=== PATIENT | female | born 1990 | race Caucasian/White ===

== ENCOUNTER 2021-03-10 06:58 | Emergency (ER) | payer MEDICAID, SELFPAY ==
[2021-03-10 07:21] VITALS: BP 142/107; PULSE 86; RESP 16; TEMP 36.8; O2SAT 99; BMI 28.0
[2021-03-10 07:25] VITALS: BP 142/107; PULSE 90; O2SAT 99
--- NOTE | 2021-03-10 07:25 | ED_ITS ---
HPI - Allergic Reaction General: Chief complaint: Allergic Reaction Stated complaint: ITCHY/SPREADING RASH Time Seen by Provider: 03/10/21 07:00 History of Present Illness: Associated symptoms: Deny abdominal pain, dizziness, facial swelling, hoarseness, nausea, tongue swelling or vomiting Review of Systems Const: Denies: fever(s), chills, body aches, fatigue, malaise or diaphoresis Eyes: Denies: change in vision, blurry vision, photophobia, eye discomfort, eye discharge, eye redness or yellow eyes ENMT: Denies: throat pain, odynophagia, hoarseness, swelling of lips/tongue, ear or mastoid pain, ear discharge, change in hearing or nasal discharge Card: Denies: chest pain, palpitations, irregular heart rhythm, edema, lightheadedness, syncope, pre-syncope, dyspnea on exertion or orthopnea Resp: Denies: dyspnea, productive cough, non-productive cough, wheezing, hemoptysis or chest congestion GI: Denies: abdominal pain, nausea, vomiting, hematemesis, coffee ground emesis, heartburn, diarrhea, constipation, GI cramping, hematochezia or melena : Denies: flank pain, dysuria, urinary frequency, urinary urgency or hematuria Musc: Denies: neck pain, back pain, extremity pain, extremity swelling, joint pain, joint swelling, joint redness, joint warmth or joint stiffness Skin/Breast: Reports: rash and pruritus; Denies: erythema, skin pain or skin tenderness Neuro: Denies: headache(s), numbness in extremities, weakness in extremities, sensory changes, lack of coordination, difficulty walking, dizziness, vertigo, confusion, Slurred speech present or seizure-like activity Harish/Lymph: Denies: easy bruising, easy bleeding, petechiae, purpura or enlarged lymph nodes All/Imm: Denies: urticaria, throat swelling, tongue swelling, facial swelling or acute wheezing PFS ED PFSH: Medical History (Updated 03/10/21 @ 07:27 by Skye Chris) No pertinent past medical history Female Reproductive History: Date of last menstrual period: 02/17/21 Physical Exam Const: COMMON NORMALS: no acute distress, patient oriented x3, no limitations and alert GENERAL APPEARANCE: cooperative HENMT: COMMON NORMALS: normocephalic, atraumatic, external ears normal, EAC's normal and Normal external nose present HEAD & SCALP: normal to inspection, normocephalic and atraumatic FACE & SINUS: normal facial exam and face symmetric NOSE: Normal external nose present and Normal nares present EXTERNAL EAR: Yes external ears normal EXTERNAL AUDITORY CANAL: EAC's normal MOUTH: Normal oral and palatal mucosa present, lip normal and tongue normal Eye: COMMON NORMALS: Equal, round and reactive pupils present and conjunctivae normal GENERAL EYE: appearance normal, both eyes and all related structures ALIGNMENT: Yes alignment normal PERIORBITAL: periorbital findings normal EYELID: eyelids normal CONJUNCTIVA: Yes conjunctivae normal SCLERA: sclerae normal PUPIL: Yes Equal, round and reactive pupils present Neck/C-Spine: COMMON NORMALS: full ROM, no lymphadenopathy, supple, no meningeal signs and no JVD GENERAL: Yes normal visual inspection and Yes trachea midline Chest: COMMONS NORMALS: normal inspection of the chest and normal palpation of entire chest wall Resp: COMMON NORMALS: normal respiratory effort, No retractions, No use of accessory muscles and clear to auscultation bilaterally EFFORT & INSPECTION: Yes able to speak in complete sentences and Yes symmetric chest movement AUSCULTATION: clear to auscultation bilaterally, no crackles, no rales, no rhonchi and no wheezes Cardio: COMMON NORMALS: no JVD, regular rate, regular rhythm, S1 normal heart sound present and S2 normal heart sound present RATE: regular rate RHYTHM: regular rhythm HEART SOUNDS: S1 normal heart sound present, S2 normal heart sound present, no click, no gallops, no murmurs and no rubs GI: COMMON NORMALS: Soft to palpation and No hepatosplenomegaly present PALPATION: Yes Soft to palpation, No Tenderness to palpation present (GI), No Guarding due to palpation present (GI), No Rigid due to palpation, Yes No hepatosplenomegaly present, No Hernia present, No Palpable mass present and No Pulsatile mass present : COMMON NORMALS: Yes no CVA tenderness BLADDER/KIDNEY EXAM: Yes no CVA tenderness EXTERNAL FEMALE EXAM: No Hernia present Back/Pelvis: COMMON NORMALS: no CVA tenderness, thoracic and lumbar spine norm al to inspection, no thoracic nor lumbar tenderness and thoraco-lumbar ROM normal Extremity: COMMON NORMALS: normal to inspection, full ROM, capillary refill normal, no joint enlargement, no clubbing, cyanosis or edema and no calf tenderness Neuro: COMMON NORMALS: patient oriented x3, CN's II-XII intact bilaterally, moves all extremities, no focal motor deficits and no sensory deficits noted SENSORIUM/ORIENTATION: Yes alert MENINGEAL SIGNS: Yes no meningeal signs SPEECH: speech normal Psych: COMMON NORMALS: mental status grossly normal, Normal thought process present, cooperative, normal affect, speech normal and activity/motor behavior normal SPEECH: Yes normal speech THOUGHT PROCESS: Normal thought process present Skin: COMMON NORMALS: turgor normal, no jaundice, no petechiae and no mottling NARRATIVE SKIN EXAM: Spotty/diffuse contact dermatitis noted to face, hands and neck. GENERAL SKIN EXAM: turgor normal Course Vital Signs: Vital signs: Vital Signs Temperature 98.3 F 03/10/21 07:21 Pulse Rate 90 03/10/21 07:25 Respiratory Rate 16 03/10/21 07:21 Blood Pressure 142/107 03/10/21 07:25 Pulse Oximetry 99 03/10/21 07:25 MDM - Allergic Reaction MDM Narrative: Medical decision making narrative: Patient has no sign of s ystemic signs or symptoms such as anaphylaxis. She states she usually has to have a shot to get herself started. I will give her a shot of Decadron and send her home with prednisone. Discharge Plan Discharge Patient Disposition: Home Clinical Impression: Contact dermatitis Condition: Stable Prescriptions: New prednisone 10 mg tablet 20 mg PO TID 5 Days Qty: 30 RF: 0 Discharge Orders: Discharge ED (Routine); Ordered 03/10/21 Ordered By: Skye Chris Referrals: Stephani Magaña MD [Physician] - (Follow-up in 1 to 3 days for recheck) Discharge Diet: Usual diet Discharge Activity: Resume usual activity Patient Instructions: Contact Dermatitis (ED) Activity Restrictions/Additional Instructions: Return to the ER for worsening of your symptoms or for any other cause for concern. Coding Level of Care Code ED Web Development Consultant for Maile Fwd Exam Comprehensive
[2021-03-10] MEDS: dexamethasone 10 mg/mL INJ IM (07:41)
== END 2021-03-10 07:48 | disposition home or self-care (01) ==
PROVIDERS: Emergency Provider Emergency Medicine
DX: L25.9 Unspecified contact dermatitis, unspecified cause (principal)
CPT/HCPCS: 96372; 99283; J1100

== ENCOUNTER 2021-12-23 18:54 | Inpatient (IN) | payer BC, MEDICAID, SELFPAY ==
[2021-12-23] VITALS (17 sets, daily range): BP systolic 103–147; BP diastolic 52–99; PULSE 85–123; TEMP 36.6; BMI 41.1
[2021-12-23 19:24] LABS: Basophils % 0.2 %; Eosinophils # 0.1 10^3/uL (0.0-0.8); Eosinophils % 1.1 %; Hematocrit 33.9 % (37.0-47.0); Hemoglobin 11.6 g/dL (11.5-15.3); Lymphocytes # 3.5 10^3/uL (0.8-4.8); Lymphocytes % 33.3 %; Mean Corpuscular HGB Conc 34.2 g/dL (30.0-36.0); Mean Corpuscular Hemoglobin 28.9 pg (28.0-34.0); Mean Corpuscular Volume 84.5 fl (81-99); Mean Platelet Volume 11.6 fL (7.4-10.4); Monocytes # 0.8 10^3/uL (0.2-0.9); Monocytes % 7.1 %; Neutrophils # 5.98 10^3/uL (1.8-7.7); Neutrophils % 56.3 %; Nucleated Red Blood Cells % 0 %; Platelet Count 294 10^3/cmm (130-400); Red Blood Count 4.01 10^6/uL (4.1-5.3); Red Cell Distribution Width 14.3 % (12.1-15.1); White Blood Count 10.6 10^3/uL (4.0-10.0)
[2021-12-23] MEDS: dextrose 5%-lactated ringers 1,000 ML 125 ML IV (19:45)
[2021-12-23] MEDS: ampicillin 2,000 MG in sodium chloride 0.9% (plus) 50 ML 100 MG IV (19:50)
[2021-12-23 20:16] LABS: Alanine Aminotransferase 11 U/L (0-33); Albumin Level 3.8 g/dL (3.5-5.2); Alkaline Phosphatase 219 U/L (35-105); Anion Gap 17.8 (5-19); Aspartate Amino Transferase 17 U/L (0-32); Blood Urea Nitrogen 5 mg/dL (6-20); Calcium 9.2 mg/dL (8.5-10.5); Carbon Dioxide 18 mmol/L (22-29); Chloride 109 mmol/L (98-107); Globulin 2.9 g/dL (1.3-4.6); Glomerular Filtration Rate 183.8 mL/min (90-130); Glucose 103 mg/dL (65-115); Osmolality Calculated 288 mOsm/kg (285-295); Potassium 4.8 mmol/L (3.5-5.1); Sodium 140 mmol/L (136-145); Total Bilirubin 0.2 mg/dL (0.15-1.2); Total Protein 6.7 g/dL (6.6-8.7); Uric Acid 6.5 mg/dL (2.4-5.7)
[2021-12-23 20:18] LABS: Urine Appearance Cloudy (CLEAR); Urine Color Yellow (Yellow); pH Urine 6 (5-7)
[2021-12-23 20:19] LABS: Add Urine Microscopic? YES; Bilirubin Urine 1+ (Negative); Blood Urine 3+ (Negative); Glucose Urine UA Norm (Normal); Ketones Urine 1+ (Negative); Leukocyte Esterase Urine 1+ (Negative); Nitrate Urine Negative (Negative); Protein Urine 2+ (Negative); Urobilinogen Urine 4 mg/dL (Negative)
[2021-12-23 20:22] LABS: Bacteria Urine 3+ /hpf; RBC Urine 40-50 /hpf (0-2); Squamous Epithelial Cell Urine 15-25 /hpf (0-5)
[2021-12-23 20:23] LABS: Add Urine Culture? No
[2021-12-23 20:32] LABS: Urine Creatinine 425 mg/dL (28-217)
[2021-12-23 20:33] LABS: UPRO/UCREAT Ratio 0.47 mg/mg CR; Urine Protein Random 200 mg/dL
[2021-12-23] MEDS: miSOPROStol 100 mcg tablet 25 MCG VAGINAL (21:33)
[2021-12-23] MEDS: promethazine 25 mg/mL SDV 1 mL IM (22:34)
[2021-12-23] MEDS: morphine 4 mg/mL SDV 1 mL 8 MG IM (22:36)
[2021-12-24] VITALS (96 sets, daily range): BP systolic 103–218; BP diastolic 51–107; PULSE 70–122; RESP 14–20; TEMP 35.8–37; O2SAT 93–100
[2021-12-24] MEDS: ampicillin 1,000 MG in sodium chloride 0.9% (plus) 50 ML 100 MG IV ×4 (00:41→14:58)
[2021-12-24] MEDS: miSOPROStol 100 mcg tablet 25 MCG VAGINAL (02:08)
[2021-12-24] MEDS: dextrose 5%-lactated ringers 1,000 ML 125 ML IV ×2 (02:11→09:03)
[2021-12-24] MEDS: fentaNYL 50 mcg/mL INJ 2mL IVP ×2 (05:05→07:20)
--- NOTE | 2021-12-24 07:00 | PM.OPHPUD ---
Labor & Delivery H&P Update Date of Procedure: December 24, 2021 Date H&P Performed: 12/23/21 Admission Diagnosis: 31-year-old 3 para 2-0-0-2 at 39 weeks and 4 days who presented to the hospital for induction due to elevated blood pressures. Primary indication for procedure: 1. Elevated blood pressures and subsequent testing of a protein creatinine ratio greater than 0.4 and a uric acid of 6.5 indicating preeclampsia 2. Gestational age greater than 37 weeks Other information: The patient is a healthy 31-year-old female who presented to my office yesterday for routine office visit. During her visit she was noted to have an elevated blood pressure of 142/80. We rechecked her blood pressure 2 more times and both times they were elevated. Due to her gestational age, we elected to proceed with an induction. After arriving at the hospital, she had several elevated blood pressures as well. She has had no other signs or symptoms of preeclampsia otherwise. Her preeclamptic panel was otherwise within normal limits with exception of an elevated uric acid. Her panel was as follows her blood type is O+ her antibody screen is negative initial glucose screen was 167 but she passed her 3-hour her GBS status is positive she is rubella immune the remainder of her infectious disease profile was within normal limits. Related Problem List Diagnoses (1) 39 weeks gestation of : (2) Preeclampsia: The patient will be induced with Cytotec due to her unfavorable cervix. Her blood pressures have improved. The patient will not be placed on magnesium unless she has severe features. (3) Group B streptococcal carriage complicating : The patient will be placed on group B strep protocol A&P Assessment and plan (1) 39 weeks gestation of : Status: Acute (2) Preeclampsia: Status: Acute (3) Group B streptococcal carriage complicating : Status: Acute
[2021-12-24] MEDS: alum-mag-hydroxide-sime 30 mL UDC PO (07:28)
[2021-12-24] MEDS: lactated ringers 1,000 ML 999 ML IV (07:56)
--- NOTE | 2021-12-24 08:01 | ANES.PREANE2 ---
Pre-Anesthetic Assessment Height/Weight: Height 1.57 m Weight 102.058 kg Temp Pulse Resp BP O2 Del Method 96.4 F L 80 20 H 141/74 12/24/21 07:14 12/24/21 07:44 12/24/21 07:20 12/24/21 07:44 12/23/21 19:50 Preop Diagnosis: Labor analgesia Labor epidural Familial anesthetic complications: None Was Beta Wally taken within 24 hours: N/A Was Clonidine taken within 24 hours: N/A Last intake: Full stomach Social No alcohol and No tobacco Exam alert, oriented x 3, clear to auscultation bilaterally and regular rate & rhythm Airway Submandibular: within normal limits Cervical ROM: within normal limits Mallampati: Class II Dentition: full History/ROS No significant history except as noted and No significant complaints Pulmonary None reported CV/HEM Preeclampsia None reported Hepatic None reported GI None reported Metabolic None reported Musc/skel None reported Neuropsych None reported Anesthetic Plan ASA status: 2 Anesthesia: Anesthesia Evaluation, Eval. for regional block, General and Regional (specify below) (Labor epidural) Other: I discussed with patient the risk and benefits of labor epidural including PDPH, hypotension, back pain/discomfort/bruising, catastrophic nerve injury including paralysis, abscess, hematoma, failed block, one sided block, and LAST. Patient consents to labor epidural and in case of emergency consents to general anesthesia. Risk of > 500 ml blood loss (7ml/kg in children): No Medications/Allergies Allergies Allergy/AdvReac Type Severity Reaction Status Date / Time codeine Allergy ADR-Chest Verified 12/23/21 19:23 Pain gabapentin Allergy ADR-Seizure Verified 12/23/21 19:23 Current Medications Generic Name Dose Route Start Last Admin Trade Name Freq PRN Reason Stop Dose Admin Al Hydrox/Mg Hydrox/Simethicone 30 ml 12/23/21 19:16 12/24/21 07:28 Jhdf-Qil-Xrcgyoklt-Ariana 30 Ml Udc PO 30 ml Q4H PRN Administration INDIGESTION Fentanyl 25 - 100 mcg 12/23/21 19:16 12/24/21 07:20 Fentanyl 50 Mcg/Ml Inj 2ml IVP 50 mcg Q1H PRN Administration SEVERE PAIN Dextrose/Lactated Ringer's 1,000 mls @ 125 mls/hr 12/23/21 19:30 12/24/21 07:56 Dextrose 5%-Lactated Ringers IV Infused .Q8H PAULINA Infusion Ampicillin Sodium 1,000 mg/ 50 mls @ 100 mls/hr 12/23/21 23:30 12/24/21 05:28 Sodium Chloride IV Infused Q4H PAULINA Infusion Protocol Lactated Ringer's 1,000 mls @ 999 mls/hr 12/24/21 07:23 12/24/21 07:56 Lactated Ringers IV 999 mls/hr .Q1H1M PRN Administration See label comments PFSH Anesthesia Medical History No pertinent past medical history Female Reproductive History Date of last menstrual period: 03/22/21 : 3 Data Anesthesia : 12/23/21 19:00 12/23/21 19:00 Short CBC 12/23/21 Range/Units 19:00 WBC 10.6 H (4.0-10.0) 10^3/uL Hgb 11.6 (11.5-15.3) g/dL Hct 33.9 L (37.0-47.0) % MCV 84.5 (81-99) fl Plt Count 294 (130-400) 10^3/cmm Neut % (Auto) 56.3 % Neut # (Auto) 5.98 (1.8-7.7) 10^3/uL BMP 12/23/21 19:00 Sodium 140 Potassium 4.8 Chloride 109 H Carbon Dioxide 18 L BUN 5 L Creatinine 0.4 L Glucose 103 Calcium 9.2 Liver Function 12/23/21 Range/Units 19:00 Total Bilirubin 0.2 (0.15-1.2) mg/dL AST 17 (0-32) U/L ALT 11 (0-33) U/L Alkaline Phosphatase 219 H (35-105) U/L Albumin 3.8 (3.5-5.2) g/dL Urine 12/23/21 Range/Units 19:55 Urine Color Yellow (Yellow) Urine Appearance Cloudy (CLEAR) Urine pH 6 (5-7) Ur Specific [place] 1.020 (1.005-1.030) Urine Protein 2+ H (Negative) Urine Glucose (UA) Norm (Normal) Urine Ketones 1+ H (Negative) Urine Nitrate Negative (Negative) Urine Bilirubin 1+ H (Negative) Ur Leukocyte Esterase 1+ H (Negative) Urine RBC 40-50 H (0-2) /hpf Urine WBC 5-10 H (0-5) /hpf Cardiac Studies: No Data to Display
[2021-12-24] MEDS: oxytocin 30 UNIT/500 ML BAG IV (10:28)
[2021-12-24] MEDS: ondansetron 2 mg/ML SDV 2 mL 4 MG IVP (15:20)
--- NOTE | 2021-12-24 15:57 | ANES.PROC ---
Anesthesia Procedures Procedure/Date: 12/24/21 Epidural: Time Out Performed: Yes Consents Signed: Procedure Consent Consent: from patient Lumbar Level: L4-L5 Epidural position: sitting Epidural procedure: sterile prep of area, 1% lidocaine to numb the area, 18 g needle, neg for paresthesia, test dose given, 1.5% xylocaine 1:200k epi, 0.2% Ropivacaine bolus ml, placed PCEA, no systemic response, sterile dressing applied and 0.2% Ropiavacaine @ mls/hr (13) Additional Comments: Cap, mask donned by staff in room. Patient sat up. Patient prepped and draped in usual sterile fashion with Chlorprep. 1% lidocaine skin wheel. Tuohy inserted with stylet. Ligament engaged. Using ANNA w/ saline technique epidural space found, catheter threaded. Negative aspiration. Test dose 1.5% lidocaine with epinephrine 1:200,000 total 3 cc. No response. Sterile dressing. Infusion started. Loss at? 7? , catheter at 13. Tolerated well, 3 attempts (first two off midline to left) good block.?
--- NOTE | 2021-12-24 17:03 | PM.DELIVERY ---
Delivery Note: Date of delivery: December 24, 2021 Pre-delivery diagnoses: 31-year-old female at 39 weeks estimated gestational age with preeclampsia Post-delivery diagnoses: Same Procedure: Continuous vaginal delivery Delivering Physician: Dion Adan Estimated blood loss (mL): 100 Pre-Delivery Course: The patient presented to the hospital where she was diagnosed with preeclampsia. She was induced using Cytotec 25 mcg x 2. Her membranes ruptured during a vaginal check. Her labor was augmented with Pitocin. Her blood pressure normalized after induction. An epidural was placed. She progressed to complete . Delivery: DELIVERY: The patient progressed to complete without difficulty. She delivered a female with a weight of 7 pounds 14 ounces with Apgars of 8, 9. The baby was delivered from the REBECA position and placed on the mother's abdomen. The cord was then clamped and cut. There was no nuchal cord. There was no meconium. The placenta and 3 vessel cord were delivered intact shortly thereafter. The perineum and vaginal vault were carefully examined. A first-degree posterior midline superficial perineal tear was noted. It was repaired with 3-0 Vicryl in a running subcuticular stitch. There is also a minor anterior tear between the clitoris and the urethra. No repair was required. Both the mother and the baby were in stable condition. Post-Delivery Status: Good A&P Assessment and plan (1) Preeclampsia: Status: Acute (2) 39 weeks gestation of : Status: Acute (3) Group B streptococcal carriage complicating : Status: Acute (4) Spontaneous vaginal delivery: Status: Acute Coding Level of Care Code Acute [place] Feather Trimmer for g Fwd Diagnoses Preeclampsia O14.90 39 weeks gestation of Z3A.39 Group B streptococcal carriage complicating O99.820 Spontaneous vaginal delivery O80
[2021-12-24] MEDS: docusate sodium 100 mg Capsule PO (18:33)
[2021-12-24] MEDS: ibuprofen 800 mg tablet PO ×2 (18:33→21:22)
--- NOTE | 2021-12-24 18:45 | ANE.PACU2 ---
Inpatient post-anesthesia follow up: Airway intact: Yes Vital signs: Temperature 97.9 F Pulse Rate 103 Respiratory Rate 14 Blood Pressure 147/75 Pulse Oximetry 99 Oxygen Delivery Me thod Room Air Oxygen Flow Rate Fraction of Inspir ed Oxygen Hydration adequate: Yes Nausea and vomiting: No Pain level: 2 Mental status: Baseline
[2021-12-24] MEDS: HYDROcodone-acetaminophen 5-325 mg Tablet PO (20:03)
[2021-12-25 00:34] VITALS: BP 155/78; PULSE 98; TEMP 36.5
[2021-12-25] MEDS: HYDROcodone-acetaminophen 5-325 mg Tablet PO ×3 (02:39→20:11)
[2021-12-25 03:18] VITALS: BP 151/87; PULSE 91; RESP 15; TEMP 36.6; O2SAT 100
[2021-12-25 06:36] VITALS: BP 142/82; PULSE 91; TEMP 36.6; O2SAT 99
[2021-12-25 07:03] LABS: Hematocrit 29.1 % (37.0-47.0); Hemoglobin 9.8 g/dL (11.5-15.3); Mean Corpuscular HGB Conc 33.7 g/dL (30.0-36.0); Mean Corpuscular Hemoglobin 28.9 pg (28.0-34.0); Mean Corpuscular Volume 85.8 fl (81-99); Mean Platelet Volume 12.2 fL (7.4-10.4); Platelet Count 245 10^3/cmm (130-400); Red Blood Count 3.39 10^6/uL (4.1-5.3); Red Cell Distribution Width 14.5 % (12.1-15.1); White Blood Count 12.3 10^3/uL (4.0-10.0)
[2021-12-25] MEDS: docusate sodium 100 mg Capsule PO (08:49)
[2021-12-25] MEDS: ibuprofen 800 mg tablet PO ×2 (08:49→15:50)
[2021-12-25] MEDS: prenatal vitamin Capsule 1 CAP PO (08:49)
[2021-12-25 09:00] VITALS: BP 146/82; PULSE 89; RESP 16; TEMP 36.8; O2SAT 94
[2021-12-25 16:18] VITALS: BP 130/73; PULSE 65; RESP 17; TEMP 36.8; O2SAT 98
--- NOTE | 2021-12-25 18:09 | PM.OBGYDC ---
Discharge Providers AUDIO NARRATOR Date of Admission: 12/23/21 18:54 Date of Discharge: 12/25/21 Attending Provider at Admission: Dion Adan MD Attending Provider at Discharge: Dion Adan MD Diagnoses at Discharge Discharge Diagnosis (1) Preeclampsia: Status: Acute (2) 39 weeks gestation of : Status: Acute (3) Group B streptococcal carriage complicating : Status: Acute (4) Spontaneous vaginal delivery: Status: Acute Reason for Visit Reason for Visit: Induction Hospital Course Hospital Course The patient presented to the hospital for induction due to having an elevated blood pressure in the office. As a part of her preeclamptic work-up, she was also found to have a protein creatinine ratio that was mildly elevated. Placed on Cytotec 25 mcg x 2. Her amniotic sac ruptured. Pitocin was initiated. She progressed to complete and had an unremarkable delivery of a healthy infant. She occasionally had elevated blood pressures, but overall her blood pressures were within normal limits without intervention. She had no other signs or symptoms of preeclampsia. Her course was unremarkable. Her bleeding was within normal limits. She had some challenges with breast-feeding, but currently, her breast-feeding is going well. Information Peripartum Data: Delivery Method: Vaginal Physical Exam Narrative: The patient is alert and oriented Her lungs are clear to auscultation her heart has a regular rate and rhythm with no murmurs Her abdomen is nontender. Her fundus is below the umbilicus and is firm. She has trace to 1+ edema in her lower extremities bilaterally. Urinary Catheter Management: Calixto: Cath Placed During This Visit: yes, but has since been removed by the nurse Reason for Continuing Indwelling Catheter: Decision to DC Catheter Urinary Catheter Date of Insertion: 12/24/21 Urinary Catheter Time of Insertion: 08:45 Date Urinary Catheter Removed: 12/24/21 Time Urinary Catheter Discontinued: 16:20 Discharge Data Studies Completed and Pending Laboratory Results WBC 12.3 10^3/uL (4.0-10.0) H 12/25/21 04:39 RBC 3.39 10^6/uL (4.1-5.3) L 12/25/21 04:39 Hgb 9.8 g/dL (11.5-15.3) L 12/25/21 04:39 Hct 29.1 % (37.0-47.0) L 12/25/21 04:39 MCV 85.8 fl (81-99) 12/25/21 04:39 MCH 28.9 pg (28.0-34.0) 12/25/21 04:39 MCHC 33.7 g/dL (30.0-36.0) 12/25/21 04:39 RDW 14.5 % (12.1-15.1) 12/25/21 04:39 Plt Count 245 10^3/cmm (130-400) 12/25/21 04:39 MPV 12.2 fL (7.4-10.4) H 12/25/21 04:39 Neut % (Auto) 56.3 % 12/23/21 19:00 Lymph % (Auto) 33.3 % 12/23/21 19:00 [place] % (Auto) 7.1 % 12/23/21 19:00 Eos % (Auto) 1.1 % 12/23/21 19:00 Baso % (Auto) 0.2 % 12/23/21 19:00 Neut # (Auto) 5.98 10^3/uL (1.8-7.7) 12/23/21 19:00 Lymph # (Auto) 3.5 10^3/uL (0.8-4.8) 12/23/21 19:00 [place] # (Auto) 0.8 10^3/uL (0.2-0.9) 12/23/21 19:00 Eos # (Auto) 0.1 10^3/uL (0.0-0.8) 12/23/21 19:00 Baso # (Auto) 0.0 10^3/uL (0.0-0.1) 12/23/21 19:00 Nucleated RBC % (auto) 0 % 12/23/21 19:00 Nucleated RBCs # 0.0 /100WBC 12/23/21 19:00 Sodium 140 mmol/L (136-145) 12/23/21 19:00 Potassium 4.8 mmol/L (3.5-5.1) 12/23/21 19:00 Chloride 109 mmol/L (98-107) H 12/23/21 19:00 Carbon Dioxide 18 mmol/L (22-29) L 12/23/21 19:00 Anion Gap 17.8 (5-19) 12/23/21 19:00 BUN 5 mg/dL (6-20) L 12/23/21 19:00 Creatinine 0.4 mg/dL (0.5-0.9) L 12/23/21 19:00 GFR Calculation 183.8 mL/min (90-130) H 12/23/21 19:00 Glucose 103 mg/dL (65-115) 12/23/21 19:00 Calculated Osmolality 288 mOsm/kg (285-295) 12/23/21 19:00 Uric Acid 6.5 mg/dL (2.4-5.7) H 12/23/21 19:00 Calcium 9.2 mg/dL (8.5-10.5) 12/23/21 19:00 Total Bilirubin 0.2 mg/dL (0.15-1.2) 12/23/21 19:00 AST 17 U/L (0-32) 12/23/21 19:00 ALT 11 U/L (0-33) 12/23/21 19:00 Alkaline Phosphatase 219 U/L (35-105) H 12/23/21 19:00 Total Protein 6.7 g/dL (6.6-8.7) 12/23/21 19:00 Albumin 3.8 g/dL (3.5-5.2) 12/23/21 19:00 Globulin 2.9 g/dL (1.3-4.6) 12/23/21 19:00 Urine Color Yellow (Yellow) 12/23/21 19:55 Urine Appearance Cloudy (CLEAR) 12/23/21 19:55 Urine pH 6 (5-7) 12/23/21 19:55 Ur Specific [place] 1.020 (1.005-1.030) 12/23/21 19:55 Urine Protein 2+ (Negative) H 12/23/21 19:55 Urine Glucose (UA) Norm (Normal) 12/23/21 19:55 Urine Ketones 1+ (Negative) H 12/23/21 19:55 Urine Blood 3+ (Negative) H 12/23/21 19:55 Urine Nitrate Negative (Negative) 12/23/21 19: Urine Bilirubin 1+ (Negative) H 12/23/21 19:55 Urine Urobilinogen 4 mg/dL (Negative) H 12/23/21 19:55 Ur Leukocyte Esterase 1+ (Negative) H 12/23/21 19:55 Urine RBC 40-50 /hpf (0-2) H 12/23/21 19:55 Urine WBC 5-10 /hpf (0-5) H 12/23/21 19:55 Ur Squamous Epith Cells 15-25 /hpf (0-5) H 12/23/21 19:55 Calcium Oxalate Crystal 5-10 /hpf H 12/23/21 19:55 Amorphous Sediment Not Reportable 12/23/21 19:55 Urine Bacteria 3+ /hpf (NONE) H 12/23/21 19:55 U Random Total Protein 200 mg/dL 12/23/21 19:55 Urine Creatinine 425 mg/dL (28-217) H 12/23/21 19:55 Protein/Creatinin Ratio 0.47 mg/mg CR 12/23/21 19:55 Vitals Last Vital Signs Temp 98.2 F 12/25/21 16:18 Pulse 65 12/25/21 16:18 Resp 17 12/25/21 16:18 BP 130/73 12/25/21 16:18 Pulse Ox 98 12/25/21 16:18 O2 Del Method 12/25/21 16:18 Discharge Plan Discharge Patient Disposition: Home Condition: Stable Prescriptions: New ibuprofen 800 mg Tablet 800 mg PO TID Qty: 45 0RF -U 106.5-1 mg Capsule 1 cap PO DAILY Qty: 100 0RF Discharge Orders: Discharge Order (Routine); Ordered 12/25/21 Ordered By: Dion Adan Referrals: Dion Adan MD [Physician] - 02/05/22 2:30 pm (Also set up appointment at the same time as her child next week.) Discharge Diet: Usual diet Discharge Activity: Limit activity as instructed Patient Instructions: Opioid Safety Discharge Attestations AUDIO NARRATOR Time Spent in Discharge Care*: greater than 30 min Coding Level of Care Code Acute Java Front End Web Developer for Chg Fwd Diagnoses Preeclampsia O14.90 39 weeks gestation of Z3A.39 Group B streptococcal carriage complicating O99.820 Spontaneous vaginal delivery O80
[2021-12-25 20:50] VITALS: BP 149/90; PULSE 72; RESP 17; TEMP 36.8
== END 2021-12-25 20:59 | disposition home or self-care (01) | DRG 807 ==
LOC: OPOB 18:55 → OBGYN 18:55
PROVIDERS: Admitting Provider Family Medicine; Visit Provider Family Medicine
DX: O14.94 Unspecified pre-eclampsia, complicating childbirth (principal); Z37.0 Single live birth; Z3A.39 39 weeks gestation of pregnancy; O99.824 Streptococcus B carrier state complicating childbirth; O70.0 First degree perineal laceration during delivery; O99.334 Smoking (tobacco) complicating childbirth; F17.210 Nicotine dependence, cigarettes, uncomplicated; Z88.5 Allergy status to narcotic agent
CPT/HCPCS: 12345; 36415; 51702; 59409; 80053; 81001; 82570; 84156; 84550; 85025; 85027; 96372; J0290; J2270; J2405; J2550; J2795; J3010

== ENCOUNTER 2021-12-27 06:36 | Emergency (ER) | payer BC, MEDICAID, SELFPAY ==
[2021-12-27 06:56] VITALS: BP 159/86; PULSE 99; RESP 18; TEMP 36.8; O2SAT 100; BMI 36.6
--- NOTE | 2021-12-27 06:56 | W.ED.GENADLT ---
HPI - General Adult General: Chief complaint: Headache Stated complaint: headache Time Seen by Provider: 12/27/21 06:39 Source: patient Mode of arrival: ambulatory Limitations: no limitations History of Present Illness: 31-year-old female who recently gave 3 days ago she was preeclamptic had a spontaneous vaginal delivery she states that since being discharged home she has had a headache along with some swelling in her extremities states she has not checked her blood pressure she does not have a blood pressure cuff at home is hypertensive here. She denies any fever she states her headache is not postural does not improved by laying flat is currently a 6 out of 10 she had no seizure she denies any fever denies any abdominal pain. Associated symptoms: Reports headache(s); Deny chest pain, dyspnea, nausea, rash or vomiting Review of Systems Const: Denies: fever(s), chills, body aches or change in appetite Eyes: Denies: blurry vision or eye discomfort ENMT: Denies: throat pain or dental pain Card: Denies: chest pain Resp: Denies: dyspnea GI: Denies: abdominal pain, nausea, vomiting or diarrhea : Denies: dysuria Musc: Reports: extremity swelling Skin/Breast: Denies: rash Neuro: Reports: headache(s) Psych: Denies: depression Harish/Lymph: Denies: easy bruising All/Imm: Denies: urticaria PFSH ED PFSH: Medical History No pertinent past medical history Social History (Updated 12/27/21 @ 06:57 by Nafisa Driver MD) Substance/Drug Use: never Female Reproductive History: Date of last menstrual period: 03/22/21 Physical Exam Const: COMMON NORMALS: no acute distress, patient oriented x3 and healthy appearing HENMT: COMMON NORMALS: normocephalic and atraumatic HEAD & SCALP: normocephalic and atraumatic Eye: COMMON NORMALS: Equal, round and reactive pupils present and EOMs intact bilaterally PUPIL: Yes Equal, round and reactive pupils present Neck/C-Spine: COMMON NORMALS: full ROM and supple Chest: COMMONS NORMALS: normal inspection of the chest and normal palpation of entire chest wall Resp: COMMON NORMALS: normal respiratory effort, No retractions, No use of accessory muscles and clear to auscultation bilaterally AUSCULTATION: clear to auscultation bilaterally Cardio: COMMON NORMALS: regular rate, regular rhythm and No murmurs present (Cardio) RATE: regular rate RHYTHM: regular rhythm GI: COMMON NORMALS: Normal to inspection, nondistended, normoactive bowel sounds present, Soft to palpation, non-tender and no masses PALPATION: Yes Soft to palpation Extremity: NARRATIVE EXTREMITY EXAM: 1+ lower ext edema Neuro: COMMON NORMALS: patient oriented x3, moves all extremities and no focal motor deficits Psych: COMMON NORMALS: mental status grossly normal, Normal thought process present and cooperative THOUGHT PROCESS: Normal thought process present Skin: COMMON NORMALS: no rashes or lesions noted and no wounds GENERAL SKIN EXAM: no rashes or lesions noted Course Vital Signs: Vital signs: Vital Signs Temperature 98.2 F 12/27/21 06:56 Pulse Rate 89 12/27/21 08:36 Respiratory Rate 14 12/27/21 08:36 Blood Pressure 110/58 12/27/21 08:36 Pulse Oximetry 97 12/27/21 08:36 Oxygen Delivery Me thod 12/27/21 06:56 MDM - General Adult Medical Decision Making Patient presents here with headache along with some hypertension blood work here is normal no signs of preeclampsia here her blood pressure has improved I talked her OB will start her on HCTZ she is to follow-up with him she is return if worsening she understands agrees to plan. Lab Data : 12/27/21 07:25 12/27/21 07:25 Laboratory Results WBC 8.4 10^3/uL (4.0-10.0) 12/27/21 07:25 RBC 3.72 10^6/uL (4.1-5.3) L 12/27/21 07:25 Hgb 10.6 g/dL (11.5-15.3) L 12/27/21 07:25 Hct 31.9 % (37.0-47.0) L 12/27/21 07:25 MCV 85.8 fl (81-99) 12/27/21 07:25 MCH 28.5 pg (28.0-34.0) 12/27/21 07:25 MCHC 33.2 g/dL (30.0-36.0) 12/27/21 07:25 RDW 14.5 % (12.1-15.1) 12/27/21 07:25 Plt Count 297 10^3/cmm (130-400) 12/27/21 07:25 MPV 10.7 fL (7.4-10.4) H 12/27/21 07:25 Neut % (Auto) 56.5 % 12/27/21 07:25 Lymph % (Auto) 32.7 % 12/27/21 07:25 [place] % (Auto) 6.5 % 12/27/21 07:25 Eos % (Auto) 2.3 % 12/27/21 07:25 Baso % (Auto) 0.6 % 12/27/21 07:25 Neut # (Auto) 4.76 10^3/uL (1.8-7.7) 12/27/21 07:25 Lymph # (Auto) 2.8 10^3/uL (0.8-4.8) 12/27/21 07:25 [place] # (Auto) 0.6 10^3/uL (0.2-0.9) 12/27/21 07:25 Eos # (Auto) 0.2 10^3/uL (0.0-0.8) 12/27/21 07:25 Baso # (Auto) 0.1 10^3/uL (0.0-0.1) 12/27/21 07:25 Nucleated RBC % (auto) 0 % 12/27/21 07:25 Nucleated RBCs # 0.0 /100WBC 12/27/21 07:25 Sodium 138 mmol/L (136-145) 12/27/21 07:25 Potassium 4.0 mmol/L (3.5-5.1) 12/27/21 07:25 Chloride 103 mmol/L (98-107) 12/27/21 07:25 Carbon Dioxide 23 mmol/L (22-29) 12/27/21 07:25 Anion Gap 16.0 (5-19) 12/27/21 07:25 BUN 10 mg/dL (6-20) 12/27/21 07:25 Creatinine 0.4 mg/dL (0.5-0.9) L 12/27/21 07:25 GFR Calculation 183.8 mL/min (90-130) H 12/27/21 07:25 Glucose 87 mg/dL (65-115) 12/27/21 07:25 Calculated Osmolality 284 mOsm/kg (285-295) L 12/27/21 07:25 Calcium 9.3 mg/dL (8.5-10.5) 12/27/21 07:25 Total Bilirubin 0.2 mg/dL (0.15-1.2) 12/27/21 07:25 AST 21 U/L (0-32) 12/27/21 07:25 ALT 12 U/L (0-33) 12/27/21 07:25 Alkaline Phosphatase 143 U/L (35-105) H 12/27/21 07:25 Lactate Dehydrogenase 208 U/L (135-214) 12/27/21 07:25 Total Protein 6.1 g/dL (6.6-8.7) L 12/27/21 07:25 Albumin 3.2 g/dL (3.5-5.2) L 12/27/21 07:25 Globulin 2.9 g/dL (1.3-4.6) 12/27/21 07:25 Urine Color Yellow (Yellow) 12/27/21 07:50 Urine Appearance Clear (CLEAR) 12/27/21 07:50 Ur Specific [place] 1.007 (1.005-1.030) 12/27/21 07:50 Urine Protein Neg (Negative) 12/27/21 07:50 Urine Glucose (UA) Norm (Normal) 12/27/21 07:50 Urine Ketones Negative (Negative) 12/27/21 07:50 Urine Blood 3+ (Negative) H 12/27/21 07:50 Urine Nitrate Negative (Negative) 12/27/21 07:50 Urine Bilirubin Neg (Negative) 12/27/21 07:50 Urine Urobilinogen Norm mg/dL (Negative) 12/27/21 07:50 Ur Leukocyte Esterase 1+ (Negative) H 12/27/21 07:50 Urine RBC Too numerous to cnt /hpf (0-2) H 12/27/21 07:50 Urine WBC 0-4 /hpf (0-5) H 12/27/21 07:50 Ur Squamous Epith Cells 0-4 /hpf (0-5) H 12/27/21 07:50 Amorphous Sediment Not Reportable 12/27/21 07:50 Urine Bacteria None /hpf (NONE) 12/27/21 07:50 Discharge Plan Discharge Patient Disposition: Home Clinical Impression: Hypertension Headache Qualifiers: Headache type: unspecified Prescriptions: New hydrochlorothiazide 50 mg tablet 50 mg PO QAM Qty: 14 0RF No Action ibuprofen 800 mg Tablet 800 mg PO TID Qty: 45 0RF -U 106.5-1 mg Capsule 1 cap PO DAILY Qty: 100 0RF Discharge Orders: Discharge ED (Routine); Ordered 12/27/21 Ordered By: Nafisa Driver Referrals: Dion Adan MD [Primary Care Provider] - 1-3 days Discharge Diet: Advance as tolerated Discharge Activity: Resume usual activity Patient Instructions: Hypertension (ED) Coding Level of Care Code ED Professor Of Special Education for Chg Fwd Exam Comprehensive
[2021-12-27] MEDS: metoclopramide 5 mg/mL SDV 2 mL 10 MG IVP (07:31)
[2021-12-27] MEDS: diphenhydrAMINE 50 mg/mL SDV 1mL IVP (07:39)
[2021-12-27 07:51] LABS: Basophils # 0.1 10^3/uL (0.0-0.1); Basophils % 0.6 %; Eosinophils # 0.2 10^3/uL (0.0-0.8); Eosinophils % 2.3 %; Hematocrit 31.9 % (37.0-47.0); Hemoglobin 10.6 g/dL (11.5-15.3); Lymphocytes # 2.8 10^3/uL (0.8-4.8); Lymphocytes % 32.7 %; Mean Corpuscular HGB Conc 33.2 g/dL (30.0-36.0); Mean Corpuscular Hemoglobin 28.5 pg (28.0-34.0); Mean Corpuscular Volume 85.8 fl (81-99); Mean Platelet Volume 10.7 fL (7.4-10.4); Monocytes # 0.6 10^3/uL (0.2-0.9); Monocytes % 6.5 %; Neutrophils # 4.76 10^3/uL (1.8-7.7); Neutrophils % 56.5 %; Nucleated Red Blood Cells % 0 %; Platelet Count 297 10^3/cmm (130-400); Red Blood Count 3.72 10^6/uL (4.1-5.3); Red Cell Distribution Width 14.5 % (12.1-15.1); White Blood Count 8.4 10^3/uL (4.0-10.0)
--- NOTE | 2021-12-27 08:00 | PC.NURSE ---
spoke with physician regarding labetolol order and pt current blood pressure. verbal order received to hold labetolol at this time.
[2021-12-27 08:02] VITALS: BP 132/66; PULSE 73; RESP 16; O2SAT 98
[2021-12-27 08:09] LABS: Alanine Aminotransferase 12 U/L (0-33); Albumin Level 3.2 g/dL (3.5-5.2); Alkaline Phosphatase 143 U/L (35-105); Aspartate Amino Transferase 21 U/L (0-32); Blood Urea Nitrogen 10 mg/dL (6-20); Calcium 9.3 mg/dL (8.5-10.5); Carbon Dioxide 23 mmol/L (22-29); Chloride 103 mmol/L (98-107); Globulin 2.9 g/dL (1.3-4.6); Glomerular Filtration Rate 183.8 mL/min (90-130); Glucose 87 mg/dL (65-115); Lactate Dehydrogenase 208 U/L (135-214); Osmolality Calculated 284 mOsm/kg (285-295); Sodium 138 mmol/L (136-145); Total Bilirubin 0.2 mg/dL (0.15-1.2); Total Protein 6.1 g/dL (6.6-8.7)
[2021-12-27 08:19] LABS: Bilirubin Urine Neg (Negative); Blood Urine 3+ (Negative); Glucose Urine UA Norm (Normal); Ketones Urine Negative (Negative); Leukocyte Esterase Urine 1+ (Negative); Nitrate Urine Negative (Negative); Protein Urine Neg (Negative); Urine Appearance Clear (CLEAR); Urine Color Yellow (Yellow); Urobilinogen Urine Norm (Negative)
[2021-12-27 08:20] LABS: Add Urine Microscopic? YES
[2021-12-27 08:25] LABS: Add Urine Culture? No; RBC Urine TOO NUMEROUS TO CNT /hpf (0-2); Squamous Epithelial Cell Urine 0-4 /hpf (0-5); WBC Urine 0-4 /hpf (0-5)
[2021-12-27 08:36] VITALS: BP 110/58; PULSE 89; RESP 14; O2SAT 97
--- NOTE | 2021-12-27 08:37 | PC.NURSE ---
pt laying in bed, asleep. Significant other at bedside.
[2021-12-27 09:14] VITALS: BP 131/77; PULSE 91; RESP 18; O2SAT 97
[2021-12-27 09:23] LABS: pH Urine 7 (5-7)
== END 2021-12-27 09:16 | disposition home or self-care (01) ==
PROVIDERS: Emergency Provider Emergency Medicine; PCP Family Medicine
DX: R51.9 Headache, unspecified (principal); I10 Essential (primary) hypertension
CPT/HCPCS: 80053; 81001; 83615; 85025; 96374; 96375; 99284; J1200; J2765

== ENCOUNTER → 2022-01-29 13:15 | Outpatient (BNVA) | payer BC, MEDICAID, SELFPAY | PROVIDERS: PCP Family Medicine; Visit Provider Registered Nurse Neonatal Intensive Care | DX: J02.0 Streptococcal pharyngitis (principal); H66.001 Acute suppurative otitis media without spontaneous rupture of ear drum, right ear | CPT/HCPCS: 87880 ==

== ENCOUNTER 2022-05-06 12:17 | Emergency (ER) | payer BC, MEDICAID, SELFPAY ==
[2022-05-06 12:22] VITALS: BP 181/122; PULSE 79; RESP 16; TEMP 36.7; O2SAT 99
--- NOTE | 2022-05-06 12:25 | ECG_ITS ---
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 Measurements Intervals [place] Rate: 83 P: 56 [place]: 158 QRS: 25 QRSD: 100 T: 48 QT: 348 QTc: 411 Interpretive Statements SINUS RHYTHM No previous ECG available for comparison Electronically Signed On 05-06-2022 14:51:32 LUBRICATION SERVICER by Kushal Boone M.D. [id number] f
--- NOTE | 2022-05-06 13:25 | XR_ITS ---
WS: [id number] Exam: XR chest 1V portable [id number] Date/Time of Exam: 05/06/2022 1:48 PM Reason For Exam: dyspnea/cough Comparison 03/21/2007. Findings: The lungs are clear and fully expanded. Costophrenic angles are sharp. No infiltrates. Bronchovascula r relief appears normal. Cardiac silhouette is unremarkable. Bony elements are intact. XR/XR chest 1V portable [id number] IMPRESSION: Unremarkable chest radiograph.
[2022-05-06 13:57] LABS: Basophils % 0.4 %; Eosinophils # 0.1 10^3/uL (0.0-0.8); Eosinophils % 1.6 %; Hematocrit 39.1 % (37.0-47.0); Hemoglobin 13.4 g/dL (11.5-15.3); Lymphocytes # 2.1 10^3/uL (0.8-4.8); Lymphocytes % 42.4 %; Mean Corpuscular HGB Conc 34.3 g/dL (30.0-36.0); Mean Corpuscular Hemoglobin 27.5 pg (28.0-34.0); Mean Corpuscular Volume 80.1 fl (81-99); Mean Platelet Volume 10.6 fL (7.4-10.4); Monocytes # 0.3 10^3/uL (0.2-0.9); Monocytes % 5.4 %; Nucleated Red Blood Cells % 0 %; Platelet Count 366 10^3/cmm (130-400); Red Blood Count 4.88 10^6/uL (4.1-5.3); Red Cell Distribution Width 13.4 % (12.1-15.1)
--- NOTE | 2022-05-06 14:01 | W.ED.CHESTPA ---
HPI - Chest Pain General: Chief Complaint: Chest Pain Stated Complaint: Chest pains Time Seen by Provider: 05/06/22 13:13 Source: patient Mode of arrival: ambulatory History of Present Illness: 32-year-old female presents emergency room complaining of palpitations and chest discomfort for the last 3 days intermittently. She feels like she has a hot sensation in her chest that is radiating up and to her chest and neck. No previous history of cardiac issues. Her blood pressure is significantly elevated when she first arrived. States she has had a history of panic attacks. She feels like she may be at the onset of a panic attack now. She denies any fevers sweats or chills last few days she has had some loose stools and nonproductive cough. PFS ED PFSH: Medical History No pertinent past medical history Female Reproductive History: Date of last menstrual period: 03/22/21 Course Vital Signs: Vital signs: Vital Signs Temperature 98.0 F 05/06/22 12:22 Pulse Rate 79 05/06/22 12:22 Respiratory Rate 16 05/06/22 12:22 Blood Pressure 181/122 05/06/22 12:22 Pulse Oximetry 99 05/06/22 12:22 Oxygen Delivery Me thod 05/06/22 12:22 MDM - Chest Pain Medical Decision Making Patient reports that taking a hot bath or palpation of the pain gets worse and anterior chest improves it. Her blood pressure is moderately elevated EKG was normal she is sats have been good and she has not been tachycardic we will discharge her home with pantoprazole 40 p.o. daily also going to have her take amlodipine 2.5 p.o. daily. Medical Records I reviewed the patient's medical records. Lab Data I reviewed the patient's lab results. 05/06/22 13:45 05/06/22 13:45 Radiology Impressions Chest X-Ray 05/06/22 13:25 IMPRESSION: Unremarkable chest radiograph. Laboratory Results WBC 5.0 10^3/uL (4.0-10.0) 05/06/22 13:45 RBC 4.88 10^6/uL (4.1-5.3) 05/06/22 13:45 Hgb 13.4 g/dL (11.5-15.3) 05/06/22 13:45 Hct 39.1 % (37.0-47.0) 05/06/22 13:45 MCV 80.1 fl (81-99) L 05/06/22 13:45 MCH 27.5 pg (28.0-34.0) L 05/06/22 13:45 MCHC 34.3 g/dL (30.0-36.0) 05/06/22 13:45 RDW 13.4 % (12.1-15.1) 05/06/22 13:45 Plt Count 366 10^3/cmm (130-400) 05/06/22 13:45 MPV 10.6 fL (7.4-10.4) H 05/06/22 13:45 Neut % (Auto) 50.0 % 05/06/22 13:45 Lymph % (Auto) 42.4 % 05/06/22 13:45 [place] % (Auto) 5.4 % 05/06/22 13:45 Eos % (Auto) 1.6 % 05/06/22 13:45 Baso % (Auto) 0.4 % 05/06/22 13:45 Neut # (Auto) 2.50 10^3/uL (1.8-7.7) 05/06/22 13:45 Lymph # (Auto) 2.1 10^3/uL (0.8-4.8) 05/06/22 13:45 [place] # (Auto) 0.3 10^3/uL (0.2-0.9) 05/06/22 13:45 Eos # (Auto) 0.1 10^3/uL (0.0-0.8) 05/06/22 13:45 Baso # (Auto) 0.0 10^3/uL (0.0-0.1) 05/06/22 13:45 Nucleated RBC % (auto) 0 % 05/06/22 13:45 Nucleated RBCs # 0.0 /100WBC 05/06/22 13:45 Sodium 138 mmol/L (136-145) 05/06/22 13:45 Potassium 3.8 mmol/L (3.5-5.1) 05/06/22 13:45 Chloride 103 mmol/L (98-107) 05/06/22 13:45 Carbon Dioxide 23 mmol/L (22-29) 05/06/22 13:45 Anion Gap 15.8 (5-19) 05/06/22 13:45 BUN 11 mg/dL (6-20) 05/06/22 13:45 Creatinine 0.5 mg/dL (0.5-0.9) 05/06/22 13:45 GFR Calculation 141.2 mL/min (90-130) H 05/06/22 13:45 Glucose 110 mg/dL (65-115) 05/06/22 13:45 Calculated Osmolality 286 mOsm/kg (285-295) 05/06/22 13:45 Calcium 9.6 mg/dL (8.5-10.5) 05/06/22 13:45 Total Bilirubin 0.2 mg/dL (0.15-1.2) 05/06/22 13:45 AST 16 U/L (0-32) 05/06/22 13:45 ALT 19 U/L (0-33) 05/06/22 13:45 Alkaline Phosphatase 141 U/L (35-105) H 05/06/22 13:45 Total Protein 7.5 g/dL (6.6-8.7) 05/06/22 13:45 Albumin 4.5 g/dL (3.5-5.2) 05/06/22 13:45 Globulin 3.0 g/dL (1.3-4.6) 05/06/22 13:45 Urine Color Yellow (Yellow) 05/06/22 13:50 Urine Appearance Clear (CLEAR) 05/06/22 13:50 Urine pH 6 (5-7) 05/06/22 13:50 Ur Specific [place] 1.010 (1.005-1.030) 05/06/22 13:50 Urine Protein Neg (Negative) 05/06/22 13:50 Urine Glucose (UA) Norm (Normal) 05/06/22 13:50 Urine Ketones Negative (Negative) 05/06/22 13:50 Urine Blood Trace (Negative) H 05/06/22 13:50 Urine Nitrate Negative (Negative) 05/06/22 13:50 Urine Bilirubin Neg (Negative) 05/06/22 13:50 Urine Urobilinogen Norm mg/dL (Negative) 05/06/22 13:50 Ur Leukocyte Esterase Negative (Negative) 05/06/22 13:50 Urine RBC 0-4 /hpf (0-2) H 05/06/22 13:50 Urine WBC 0-4 /hpf (0-5) H 05/06/22 13:50 Ur Squamous Epith Cells 5-10 /hpf (0-5) H 05/06/22 13:50 Amorphous Sediment Not Reportable 05/06/22 13:50 Urine Bacteria Trace /hpf (NONE) 05/06/22 13:50 Influenza Type A Ag negative (Negative) 05/06/22 14:05 Influenza Type B Ag negative (Negative) 05/06/22 14:05 SARS-CoV-2 Ag (Rapid) negative (Negative) 05/06/22 14:05 Discharge Plan Discharge Patient Disposition: Home Clinical Impression: Atypical chest pain Condition: Stable Prescriptions: New pantoprazole 40 mg tablet,delayed release (DR/EC) 40 mg PO DAILY Qty: 30 0RF amlodipine 2.5 mg tablet 2.5 mg PO DAILY Qty: 30 0RF No Action amoxicillin 875 mg tablet 875 mg PO BID 7 Days Qty: 14 0RF ibuprofen 800 mg Tablet 800 mg PO TID Qty: 45 0RF -U 106.5-1 mg Capsule 1 cap PO DAILY Qty: 100 0RF Discharge Orders: Discharge ED (Routine); Ordered 05/06/22 Ordered By: Luigi Brown Referrals: Dion Adan MD [Primary Care Provider] - Discharge Diet: Usual diet Discharge Activity: Resume usual activity Patient Instructions: Opioid Safety, Pain Management Activity Restrictions/Additional Instructions: You were seen today for an atypical chest pain. Your EKG and laboratory tests were unremarkable. Suspect some of your symptoms were due to chest wall pain as some of them may be due to anxiety issues. You are given a prescription for pantoprazole take 1 daily follow-up with your primary care doctor symptoms persist. Your blood pressure was elevated when you first arrived in the emergency room follow-up with your primary care doctor to monitor your blood pressures, you were given a prescription for amlodipine 2.5 mg once daily to take until you follow-up with your doctor Coding Level of Care Code ED Building And Grounds Supervisor for Maile Tom
[2022-05-06 14:14] LABS: Alanine Aminotransferase 19 U/L (0-33); Albumin Level 4.5 g/dL (3.5-5.2); Alkaline Phosphatase 141 U/L (35-105); Anion Gap 15.8 (5-19); Aspartate Amino Transferase 16 U/L (0-32); Blood Urea Nitrogen 11 mg/dL (6-20); Calcium 9.6 mg/dL (8.5-10.5); Carbon Dioxide 23 mmol/L (22-29); Chloride 103 mmol/L (98-107); Glomerular Filtration Rate 141.2 mL/min (90-130); Glucose 110 mg/dL (65-115); Osmolality Calculated 286 mOsm/kg (285-295); Potassium 3.8 mmol/L (3.5-5.1); Sodium 138 mmol/L (136-145); Total Bilirubin 0.2 mg/dL (0.15-1.2); Total Protein 7.5 g/dL (6.6-8.7)
[2022-05-06 14:28] LABS: Influenza A by IFA negative (Negative); Influenza B by IFA negative (Negative)
[2022-05-06 14:29] LABS: SARS Covid-2 Antigen negative (Negative)
[2022-05-06 14:45] LABS: Urine Appearance Clear (CLEAR); Urine Color Yellow (Yellow)
[2022-05-06 14:46] LABS: Add Urine Microscopic? YES; Bacteria Urine TRACE /hpf; Bilirubin Urine Neg (Negative); Blood Urine Trace (Negative); Glucose Urine UA Norm (Normal); Ketones Urine Negative (Negative); Leukocyte Esterase Urine Negative (Negative); Nitrate Urine Negative (Negative); Protein Urine Neg (Negative); RBC Urine 0-4 /hpf (0-2); Urobilinogen Urine Norm (Negative); WBC Urine 0-4 /hpf (0-5); pH Urine 6 (5-7)
[2022-05-06] MEDS: ketorolac 60 mg/2 mL INJ IM (15:29)
[2022-05-06 16:59] VITALS: BP 169/111
== END 2022-05-06 17:00 | disposition home or self-care (01) ==
PROVIDERS: Emergency Provider Family Medicine; PCP Family Medicine
DX: R07.89 Other chest pain (principal); Z20.822 Contact with and (suspected) exposure to COVID-19
CPT/HCPCS: 71045; 80053; 81001; 85025; 87426; 87804; 93005; 96372; 99285; J1885

== ENCOUNTER 2022-09-09 15:20 | Emergency (ER) | payer BC, MEDICAID, SELFPAY ==
[2022-09-09 15:26] VITALS: BP 162/95; RESP 124; TEMP 36.8; O2SAT 98; BMI 39.3
--- NOTE | 2022-09-09 20:24 | ECG_ITS ---
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 Measurements Intervals [place] Rate: 79 P: 38 [place]: 148 QRS: 20 QRSD: 94 T: 35 QT: 370 QTc: 426 Interpretive Statements SINUS RHYTHM Compared to ECG 05/06/2022 12:28:58 No significant changes Electronically Signed On 09-09-2022 21:08:56 CDT by Margarita Adhikari M.D. [id number]
--- NOTE | 2022-09-09 20:25 | W.ED.GENADLT ---
HPI - General Adult General: Chief complaint: Eye Problems Stated complaint: SOB,Left eye blurred vision Time Seen by Provider: 09/09/22 20:18 History of Present Illness: 32-year-old female comes in today with complaints of pain and tenderness to the posterior calf of the left lower leg. Patient was concerned she might be developing a blood clot. Patient also reports that she had some left upper arm numbness after prolonged reaching over to give her baby up at all the back until it fell asleep. Patient also noted some fuzziness in her left eye that cleared shortly after the numbness in her left arm. Patient denies chest pain or difficulty breathing. Patient has no obvious neural deficits. Associated symptoms: Deny chest pain, dyspnea, rash or vomiting Review of Systems General: Reports: 10 or more systems reviewed and unremarkable except in HPI and below Card: Denies: chest pain Resp: Denies: dyspnea GI: Denies: vomiting : Denies: difficulty voiding Musc: Reports: back pain and extremity pain Skin/Breast: Denies: rash Neuro: Reports: numbness in extremities [facility] ED PFSH: Medical History No pertinent past medical history Social History (Updated 12/27/21 @ 06:57 by Nafisa Driver MD) Substance/Drug Use: never Physical Exam Const: COMMON NORMALS: alert HENMT: COMMON NORMALS: normocephalic HEAD & SCALP: normocephalic Eye: COMMON NORMALS: EOMs intact bilaterally GENERAL EYE: appearance normal, both eyes and all related structures Neck/C-Spine: COMMON NORMALS: full ROM CERVICAL SPINE: No Cervical spine tenderness Chest: COMMONS NORMALS: normal inspection of the chest and normal palpation of entire chest wall Resp: COMMON NORMALS: normal respiratory effort and clear to auscultation bilaterally AUSCULTATION: clear to auscultation bilaterally Cardio: COMMON NORMALS: regular rate and regular rhythm RATE: regular rate RHYTHM: regular rhythm GI: COMMON NORMALS: Soft to palpation and non-tender PALPATION: Yes Soft to palpation Back/Pelvis: THORACIC SPINE/UPPER BACK: No thoracic spinal tenderness and No paraspinal muscle tenderness LUMBAR SPINE/LOWER BACK: Yes lumbar spinal tenderness Lumbar spinal tenderness location: L5 and No paraspinal muscle tenderness Extremity: COMMON NORMALS: normal to inspection LEFT LOWER EXTREMITY: Yes lower leg (Calf tenderness no swelling) Neuro: SENSORIUM/ORIENTATION: Yes alert Skin: LESIONS: lesion noted (Left axilla 3 cm erythema without fluctuance central cyst) Course Vital Signs: Vital signs: Vital Signs Temperature 98.3 F 09/09/22 15:26 Respiratory Rate 124 H 09/09/22 15:26 Blood Pressure 162/95 09/09/22 15:26 Pulse Oximetry 98 09/09/22 15:26 Oxygen Delivery Me thod Room Air 09/09/22 15:26 MDM - General Adult Medical Decision Making 32-year-old female comes in today for complaints of pain to the left calf and some numbness. Patient also had complaints of a erythematous fluctuant cyst to her left axilla. Patient appears nontoxic. Vital signs are normal. Differential diagnosis includes but not limited to DVT, sciatica, stroke syndrome, cellulitis, abscess. No focal neurodeficits were noted. Patient has good strength in all extremities. No aphagia or aphasia was noted. Patient was given 1 hydrocodone for pain in the calf. Laboratory values had a negative D-dimer to rule out DVT. CBC and CMP were negative for any significant abnormalities suggesting no anemia or electrolyte disturbance. EKG shows normal sinus rhythm. Reviewed exam with patient recommended treatment for sciatica and her infected epidermal cyst. Recommend follow-up with primary care for further evaluation and treatment. Recommend return to the ER for worsening symptoms or new concerns. Lab Data 09/09/22 20:35 09/09/22 20:35 Laboratory Results WBC 7.2 10^3/uL (4.0-10.0) 09/09/22 20:35 RBC 4.83 10^6/uL (4.1-5.3) 09/09/22 20:35 Hgb 13.2 g/dL (11.5-15.3) 09/09/22 20:35 Hct 40.1 % (37.0-47.0) 09/09/22 20:35 MCV 83.0 fl (81-99) 09/09/22 20:35 MCH 27.3 pg (28.0-34.0) L 09/09/22 20:35 MCHC 32.9 g/dL (30.0-36.0) 09/09/22 20:35 RDW 14.4 % (12.1-15.1) 09/09/22 20:35 Plt Count 295 10^3/cmm (130-400) 09/09/22 20:35 MPV 10.5 fL (7.4-10.4) H 09/09/22 20:35 Neut % (Auto) 48.9 % 09/09/22 20:35 Lymph % (Auto) 43.5 % 09/09/22 20:35 [place] % (Auto) 5.6 % 09/09/22 20:35 Eos % (Auto) 1.3 % 09/09/22 20:35 Baso % (Auto) 0.4 % 09/09/22 20:35 Neut # (Auto) 3.52 10^3/uL (1.8-7.7) 09/09/22 20:35 Lymph # (Auto) 3.1 10^3/uL (0.8-4.8) 09/09/22 20:35 [place] # (Auto) 0.4 10^3/uL (0.2-0.9) 09/09/22 20:35 Eos # (Auto) 0.1 10^3/uL (0.0-0.8) 09/09/22 20:35 Baso # (Auto) 0.0 10^3/uL (0.0-0.1) 09/09/22 20:35 Nucleated RBC % (auto) 0 % 09/09/22 20:35 Nucleated RBCs # 0.0 /100WBC 09/09/22 20:35 D-Dimer 0.50 ug/mIFEU (0-0.59) 09/09/22 20:35 Sodium 140 mmol/L (136-145) 09/09/22 20:35 Potassium 3.9 mmol/L (3.5-5.1) 09/09/22 20:35 Chloride 105 mmol/L (98-107) 09/09/22 20:35 Carbon Dioxide 24 mmol/L (22-29) 09/09/22 20:35 Anion Gap 14.9 (5-19) 09/09/22 20:35 BUN 9 mg/dL (6-20) 09/09/22 20:35 Creatinine 0.5 mg/dL (0.5-0.9) 09/09/22 20:35 GFR Calculation 141.2 mL/min (90-130) H 09/09/22 20:35 Glucose 93 mg/dL (65-115) 09/09/22 20:35 Calculated Osmolality 288 mOsm/kg (285-295) 09/09/22 20:35 Calcium 9.0 mg/dL (8.5-10.5) 09/09/22 20:35 Total Bilirubin 0.2 mg/dL (0.15-1.2) 09/09/22 20:35 AST 13 U/L (0-32) 09/09/22 20:35 ALT 11 U/L (0-33) 09/09/22 20:35 Alkaline Phosphatase 124 U/L (35-105) H 09/09/22 20:35 Total Protein 7.4 g/dL (6.6-8.7) 09/09/22 20:35 Albumin 4.3 g/dL (3.5-5.2) 09/09/22 20:35 Globulin 3.1 g/dL (1.3-4.6) 09/09/22 20:35 EKG Data EKG 1: EKG interpretation date: 09/09/22 EKG interpretation time: 21:15 Interpretation: EKG shows a sinus rhythm with a regular rate of [address] elevation or ectopy is noted. No prior exam was available for comparison. Discharge Plan Discharge Patient Disposition: Home Clinical Impression: Epithelial inclusion cyst, Acute pain of left lower extremity Condition: Stable Prescriptions: New Bactrim DS 800-160 mg tablet 1 tab PO BID Qty: 14 0RF mupirocin 2 % ointment 1 applic topical BID Qty: 22 0RF hydrocodone-acetaminophen 5-325 mg tablet 1 tab PO Q8H PRN (Reason: pain (scale score 7-10)) Qty: 6 0RF No Action amoxicillin 875 mg tablet 875 mg PO BID 7 Days Qty: 14 0RF ibuprofen 800 mg Tablet 800 mg PO TID Qty: 45 0RF -U 106.5-1 mg Capsule 1 cap PO DAILY Qty: 100 0RF pantoprazole 40 mg tablet,delayed release (DR/EC) 40 mg PO DAILY Qty: 30 0RF amlodipine 2.5 mg tablet 2.5 mg PO DAILY Qty: 30 0RF Discharge Orders: Discharge ED (Routine); Ordered 09/09/22 Ordered By: Beltran Carrillo Referrals: Dion Adan MD [Primary Care Provider] - Discharge Diet: Usual diet Discharge Activity: Increase activity as tolerated Patient Instructions: Abscess (ED) Activity Restrictions/Additional Instructions: Take antibiotic as directed. Use warm moist packs to the area. Do not pick or produce at the area. Drink plenty of water with antibiotic. Use acetaminophen ibuprofen to control pain. Use hydrocodone for severe pain. Apply antibiotic ointment twice a day to the cyst. Follow-up with primary care for further instruction. Return to ED for new concerns. Coding Level of Care Code ED Bead Picker for Maile Tom
[2022-09-09 20:46] LABS: Basophils % 0.4 %; Eosinophils # 0.1 10^3/uL (0.0-0.8); Eosinophils % 1.3 %; Hematocrit 40.1 % (37.0-47.0); Hemoglobin 13.2 g/dL (11.5-15.3); Lymphocytes # 3.1 10^3/uL (0.8-4.8); Lymphocytes % 43.5 %; Mean Corpuscular HGB Conc 32.9 g/dL (30.0-36.0); Mean Corpuscular Hemoglobin 27.3 pg (28.0-34.0); Mean Platelet Volume 10.5 fL (7.4-10.4); Monocytes # 0.4 10^3/uL (0.2-0.9); Monocytes % 5.6 %; Neutrophils # 3.52 10^3/uL (1.8-7.7); Neutrophils % 48.9 %; Nucleated Red Blood Cells % 0 %; Platelet Count 295 10^3/cmm (130-400); Red Blood Count 4.83 10^6/uL (4.1-5.3); Red Cell Distribution Width 14.4 % (12.1-15.1); White Blood Count 7.2 10^3/uL (4.0-10.0)
[2022-09-09] MEDS: HYDROcodone-acetaminophen 5-325 mg Tablet 1 TAB PO (20:54)
--- NOTE | 2022-09-09 21:01 | PC.NURSE ---
REPORT GIVEN TO ANGELO FENTON ASSUMED CARE. PT UPDATED ON CARE AND INFORMED THAT ANGELO FENTON WOULD BE TAKING OVER HER NURSING CARE.
[2022-09-09 21:03] LABS: Alanine Aminotransferase 11 U/L (0-33); Albumin Level 4.3 g/dL (3.5-5.2); Alkaline Phosphatase 124 U/L (35-105); Anion Gap 14.9 (5-19); Aspartate Amino Transferase 13 U/L (0-32); Blood Urea Nitrogen 9 mg/dL (6-20); Carbon Dioxide 24 mmol/L (22-29); Chloride 105 mmol/L (98-107); Globulin 3.1 g/dL (1.3-4.6); Glomerular Filtration Rate 141.2 mL/min (90-130); Glucose 93 mg/dL (65-115); Osmolality Calculated 288 mOsm/kg (285-295); Potassium 3.9 mmol/L (3.5-5.1); Sodium 140 mmol/L (136-145); Total Bilirubin 0.2 mg/dL (0.15-1.2); Total Protein 7.4 g/dL (6.6-8.7)
== END 2022-09-09 22:03 | disposition home or self-care (01) ==
PROVIDERS: Emergency Provider Nurse Practitioner Family; PCP Family Medicine
DX: M79.662 Pain in left lower leg (principal); L72.0 Epidermal cyst
CPT/HCPCS: 36415; 80053; 85025; 85378; 93005; 99284

== ENCOUNTER 2022-11-07 12:18 | Emergency (ER) | payer BC, MEDICAID, SELFPAY ==
[2022-11-07 12:37] VITALS: BP 148/94; PULSE 118; RESP 18; TEMP 36.6; O2SAT 97; BMI 36.6
[2022-11-07 13:32] VITALS: BP 162/112; RESP 16; O2SAT 97
--- NOTE | 2022-11-07 13:34 | XR_ITS ---
WS: [id number] EXAMINATION: XR chest 1V portable [id number] REASON FOR EXAM: chest/L shoulder pain COMPARISON: 05/06/2022 ORDER DATE: 11/07/2022 1:48 PM TECHNIQUE: A single, portable frontal chest x-ray was obtained. X-RAY FINDINGS: There is a 4 x 8 mm nodule in the medial mid right upper lobe and one or 2 smaller possible nodules i n the similar location in the left upper lobe without calcification. Pleural spaces are clear. No ple ural effusions or pneumothorax. Cardiomediastinal silhouette is normal. No evidence for pulmonary edema. Soft tissue and osseous structures are unremarkable. No tubes or lines are present. XR/XR chest 1V portable [id number] IMPRESSION: Nodules as noted, these were not as conspicuous on the previous study. An apica l lordotic view may benefit imaging but may continue to be obscured by overlyin g bone density, consider CT imaging for further assessment if clinically indica rafaela.
--- NOTE | 2022-11-07 13:35 | ED_ITS ---
HPI - Extremity Problem General: Chief complaint: Extremity Problem,Nontraumatic Stated complaint: abd pain Time Seen by Provider: 11/07/22 13:07 Source: patient Mode of arrival: ambulatory Limitations: no limitations History of Present Illness: Patient is a 32-year-old female presents to ED today with complaint of left shoulder pain. She states she first noticed left shoulder pain approximately 2 weeks ago. She states the pain has been pretty constant since onset without any worsening factors to her discomfort. She states range of motion does not seem to exacerbate her pain. She has found that may be a hot shower seems to help slightly. Reports she generally has felt unwell. She states surprisingly over the past 2 days she has been asymptomatic but pain returned yesterday evening and into today with worsening severity. No injury or trauma to the shoulder. No lifting/straining/pulling injuries. She denies numbness, tingling, loss of sensation into her right upper arm. She does feel like the pain in her shoulder slightly moves into her chest. Patient admittedly is very anxious stating that her father is a heart patient and that she knows that females can present atypically. She is worried her general unwellness and shoulder pain could be secondary to cardiac etiology. Denies abdominal pain. Denies neck/back pain. Denies SOB/difficulty breathing or palpitations. No risk factors for PE. No known cardiac history. She does report her resting heartrate is always fast MD Complaint: joint pain Onset (ago): week(s) Pain Consistency: intermittent Location: left and upper extremity Severity scale (1-10): 6 Radiation: none Relieving factors: other (maybe hot shower?) Exacerbating factors: nothing Associated symptoms: Reports chest pain; Deny fever(s) or rash Review of Systems Const: Denies: fever(s), chills, body aches, fatigue or malaise Card: Reports: chest pain; Denies: palpitations, irregular heart rhythm, edema, swelling of feet/ankles, lightheadedness, syncope, pre-syncope, dyspnea on exertion, orthopnea, leg pain with exertion or acrocyanosis Resp: Denies: dyspnea, productive cough, non-productive cough, wheezing, stridor, pain on inspiration, change in phlegm color, hemoptysis or chest congestion GI: Denies: abdominal pain, nausea, vomiting or diarrhea Musc: Reports: joint pain (L shoulder); Denies: neck pain, back pain, extremity pain, extremity swelling, joint swelling, joint redness, joint warmth, joint stiffness, limited range of motion, muscle cramps, muscle weakness or decrease in muscle mass Skin/Breast: Denies: rash Neuro: Denies: headache(s), numbness in extremities, weakness in extremities, sensory changes or dizziness PFSH ED PFSH: Medical History No pertinent past medical history Social History Substance/Drug Use: never Physical Exam Const: COMMON NORMALS: no acute distress, patient oriented x3, no limitations, alert and well nourished GENERAL APPEARANCE: cooperative NUTRITIONAL APPEARANCE: overweight ORIENTATION/CONSCIOUSNESS: Yes awake, Yes oriented to person, Yes oriented to place and Yes oriented to time HENMT: COMMON NORMALS: normocephalic and atraumatic HEAD & SCALP: normal to inspection, normocephalic and atraumatic Eye: COMMON NORMALS: no scleral icterus Neck/C-Spine: COMMON NORMALS: full ROM and no JVD GENERAL: Yes normal visual inspection CERVICAL SPINE: No pain with cervical ROM, No Cervical spine tenderness and No Paracervical muscle tenderness Chest: COMMONS NORMALS: normal inspection of the chest and normal palpation of entire chest wall Resp: COMMON NORMALS: normal respiratory effort and clear to auscultation bilaterally AUSCULTATION: clear to auscultation bilaterally Cardio: COMMON NORMALS: no JVD and regular rhythm RATE: tachycardic RHYTHM: regular rhythm GI: COMMON NORMALS: Normal to inspection, nondistended, normoactive bowel sounds present, Soft to palpation and non-tender PALPATION: Yes Soft to palpation : COMMON NORMALS: Yes no CVA tenderness BLADDER/KIDNEY EXAM: Yes no CVA tenderness Back/Pelvis: COMMON NORMALS: no CVA tenderness, thoracic and lumbar spine normal to inspection, no thoracic nor lumbar tenderness and thoraco-lumbar ROM normal Extremity: COMMON NORMALS: normal to inspection, full ROM, capillary refill normal, no joint enlargement, no clubbing, cyanosis or edema, no calf tenderness and no pedal edema GENERAL: Yes normal exam except as noted LEFT UPPER EXTREMITY: Yes shoulder joint Left shoulder joint: Yes ROM (normal-states this does not elicit pain) and Yes neurovascular exam (normal) Neuro: COMMON NORMALS: patient oriented x3, moves all extremities, no focal motor deficits and no sensory deficits noted SENSORIUM/ORIENTATION: Yes alert, Yes oriented to person, Yes oriented to place and Yes oriented to time MOTOR EXAM: 5/5 motor strength present throughout and Normal motor muscle tone present throughout Skin: COMMON NORMALS: no rashes or lesions noted GENERAL SKIN EXAM: no rashes or lesions noted Course Vital Signs: Vital signs: Vital Signs Temperature 97.9 F 11/07/22 12:37 Pulse Rate 92 11/07/22 15:09 Respiratory Rate 16 11/07/22 15:09 Blood Pressure 150/96 11/07/22 15:09 Pulse Oximetry 97 11/07/22 15:09 Oxygen Delivery Me thod Room Air 11/07/22 13:32 MDM - Extremity (Nontraumatic) Medical Decision Making Patient appears in no acute distress. Shoulder pain did not seem to be reproducible by range of motion or palpation. Upon arrival blood pressure is slightly elevated along with an elevated pulse. She states her heart rate is always high. She thinks her blood pressure is normally controlled at home. I recommended keeping a blood pressure log and following up with Dr. Adan if pressures remain high. Her work-up today including a single troponin and D- dimer are unremarkable apart from a mildly elevated alk phos at 139. It looks like this has been elevated back into 2021. Her EKG showing sinus tachycardia. CXR with incidental nodules that patient was made aware of. She will follow up with Dr. Adan for these as well as elevated alk phos level especially if shoulder pain doesn't improve-could look into possibly bone origin. Lab Data 11/07/22 13:57 11/07/22 13:57 Radiology Impressions Chest X-Ray 11/07/22 13:34 IMPRESSION: Nodules as noted, these were not as conspicuous on the previous study. An apical lordotic view may benefit imaging but may continue to be obscured by overlying bone density, consider CT imaging for further assessment if clinically indicated. Laboratory Results WBC 4.2 10^3/uL (4.0-10.0) 11/07/22 13:57 RBC 5.09 10^6/uL (4.1-5.3) 11/07/22 13:57 Hgb 13.8 g/dL (11.5-15.3) 11/07/22 13:57 Hct 41.0 % (37.0-47.0) 11/07/22 13:57 MCV 80.6 fl (81-99) L 11/07/22 13:57 MCH 27.1 pg (28.0-34.0) L 11/07/22 13:57 MCHC 33.7 g/dL (30.0-36.0) 11/07/22 13:57 RDW 14.4 % (12.1-15.1) 11/07/22 13:57 Plt Count 298 10^3/cmm (130-400) 11/07/22 13:57 MPV 10.7 fL (7.4-10.4) H 11/07/22 13:57 Neut % (Auto) 47.6 % 11/07/22 13:57 Lymph % (Auto) 44.8 % 11/07/22 13:57 Edgar % (Auto) 6.4 % 11/07/22 13:57 Eos % (Auto) 0.5 % 11/07/22 13:57 Baso % (Auto) 0.5 % 11/07/22 13:57 Neut # (Auto) 2.00 10^3/uL (1.8-7.7) 11/07/22 13:57 Lymph # (Auto) 1.9 10^3/uL (0.8-4.8) 11/07/22 13:57 Edgar # (Auto) 0.3 10^3/uL (0.2-0.9) 11/07/22 13:57 Eos # (Auto) 0.0 10^3/uL (0.0-0.8) 11/07/22 13:57 Baso # (Auto) 0.0 10^3/uL (0.0-0.1) 11/07/22 13:57 Nucleated RBC % (auto) 0 % 11/07/22 13:57 Nucleated RBCs # 0.0 /100WBC 11/07/22 13:57 D-Dimer 0.38 ug/mIFEU (0-0.59) 11/07/22 13:57 Sodium 139 mmol/L (136-145) 11/07/22 13:57 Potassium 4.6 mmol/L (3.5-5.1) 11/07/22 13:57 Chloride 103 mmol/L (98-107) 11/07/22 13:57 Carbon Dioxide 24 mmol/L (22-29) 11/07/22 13:57 Anion Gap 16.6 (5-19) 11/07/22 13:57 BUN 8 mg/dL (6-20) 11/07/22 13:57 Creatinine 0.5 mg/dL (0.5-0.9) 11/07/22 13:57 GFR Calculation 141.2 mL/min (90-130) H 11/07/22 13:57 Glucose 94 mg/dL (65-115) 11/07/22 13:57 Calculated Osmolality 286 mOsm/kg (285-295) 11/07/22 13:57 Calcium 10.0 mg/dL (8.5-10.5) 11/07/22 13:57 Total Bilirubin 0.2 mg/dL (0.15-1.2) 11/07/22 13:57 AST 15 U/L (0-32) 11/07/22 13:57 ALT 14 U/L (0-33) 11/07/22 13:57 Alkaline Phosphatase 139 U/L (35-105) H 11/07/22 13:57 Troponin T Gen 5 ng/L 6 ng/L (0-10) 11/07/22 13:57 Total Protein 7.5 g/dL (6.6-8.7) 11/07/22 13:57 Albumin 4.6 g/dL (3.5-5.2) 11/07/22 13:57 Globulin 2.9 g/dL (1.3-4.6) 11/07/22 13:57 Discharge Plan Discharge Patient Disposition: Home Clinical Impression: Acute pain of left shoulder Condition: Stable Prescriptions: No Action amoxicillin 875 mg tablet 875 mg PO BID 7 Days Qty: 14 0RF ibuprofen 800 mg Tablet 800 mg PO TID Qty: 45 0RF -U 106.5-1 mg Capsule 1 cap PO DAILY Qty: 100 0RF Bactrim DS 800-160 mg tablet 1 tab PO BID Qty: 14 0RF mupirocin 2 % ointment 1 applic topical BID Qty: 22 0RF hydrocodone-acetaminophen 5-325 mg tablet 1 tab PO Q8H PRN (Reason: pain (scale score 7-10)) Qty: 6 0RF pantoprazole 40 mg tablet,delayed release (DR/EC) 40 mg PO DAILY Qty: 30 0RF amlodipine 2.5 mg tablet 2.5 mg PO DAILY Qty: 30 0RF Discharge Orders: Discharge ED (Routine); Ordered 11/07/22 Ordered By: Gissel Barrios Referrals: Dion Adan MD [Primary Care Provider] - Activity Restrictions/Additional Instructions: As we discussed please follow-up with your primary care provider/Dr. Adan for further evaluation of your left shoulder pain. As we discussed a few incidental lung nodules were found on your chest x-ray today. He can follow-up with you regarding these and the need for surveillance versus further imaging. Coding Level of Care Code ED Matrix Bath Attendant for Maile Tom
--- NOTE | 2022-11-07 14:03 | ECG_ITS ---
[facility] Test Date: 2022-11-07 Pat Name: Jacqui Lind Department: Room: Gender: Female Floor Renovator: : 1990 Requested By: Gissel Barrios Order Number: [id number] Yuriy MD: Racheal Shepard M.D. Measurements Intervals [place] Rate: 108 P: 62 RI: 140 QRS: 26 QRSD: 99 T: 55 QT: 321 QTc: 432 Interpretive Statements SINUS TACHYCARDIA POSSIBLE LEFT ATRIAL ENLARGEMENT [-0.1mV P-WAVE IN V1/V2] INCOMPLETE RIGHT BUNDLE BRANCH BLOCK [90+ ms QRS DURATION, TERMINAL R IN V1/V2, 40+ ms S IN I/aVL/V4/V5/V6] ABNORMAL RHYTHM ECG Compared to ECG 09/09/2022 21:01:21 Incomplete right bundle-branch block now present Sinus rhythm no longer present Electronically Signed On 11-07-2022 18:44:21 CDT by Racheal Shepard M.D. [email or web address] [email or web address].[employer]/store/NU/[id number] f
[2022-11-07 14:31] LABS: Basophils % 0.5 %; Eosinophils % 0.5 %; Hemoglobin 13.8 g/dL (11.5-15.3); Lymphocytes # 1.9 10^3/uL (0.8-4.8); Lymphocytes % 44.8 %; Mean Corpuscular HGB Conc 33.7 g/dL (30.0-36.0); Mean Corpuscular Hemoglobin 27.1 pg (28.0-34.0); Mean Corpuscular Volume 80.6 fl (81-99); Mean Platelet Volume 10.7 fL (7.4-10.4); Monocytes # 0.3 10^3/uL (0.2-0.9); Monocytes % 6.4 %; Neutrophils % 47.6 %; Nucleated Red Blood Cells % 0 %; Platelet Count 298 10^3/cmm (130-400); Red Blood Count 5.09 10^6/uL (4.1-5.3); Red Cell Distribution Width 14.4 % (12.1-15.1); White Blood Count 4.2 10^3/uL (4.0-10.0)
[2022-11-07 14:48] LABS: D Dimer 0.38 ug/mIFEU (0-0.59)
[2022-11-07 14:53] LABS: Troponin T (5th) Once 6 ng/L (0-10)
[2022-11-07 15:05] LABS: Alanine Aminotransferase 14 U/L (0-33); Albumin Level 4.6 g/dL (3.5-5.2); Alkaline Phosphatase 139 U/L (35-105); Anion Gap 16.6 (5-19); Aspartate Amino Transferase 15 U/L (0-32); Blood Urea Nitrogen 8 mg/dL (6-20); Carbon Dioxide 24 mmol/L (22-29); Chloride 103 mmol/L (98-107); Globulin 2.9 g/dL (1.3-4.6); Glomerular Filtration Rate 141.2 mL/min (90-130); Glucose 94 mg/dL (65-115); Osmolality Calculated 286 mOsm/kg (285-295); Potassium 4.6 mmol/L (3.5-5.1); Sodium 139 mmol/L (136-145); Total Bilirubin 0.2 mg/dL (0.15-1.2); Total Protein 7.5 g/dL (6.6-8.7)
[2022-11-07 15:09] VITALS: BP 150/96; PULSE 92; RESP 16; O2SAT 97
== END 2022-11-07 15:18 | disposition home or self-care (01) ==
PROVIDERS: Emergency Provider Physician Assistant; PCP Family Medicine
DX: M25.512 Pain in left shoulder (principal)
CPT/HCPCS: 36415; 71045; 80053; 84484; 85025; 85378; 93005; 99285

== ENCOUNTER 2022-12-09 14:11 | Outpatient (CLI) | payer BC, MEDICAID, SELFPAY ==
--- NOTE | 2022-12-09 14:24 | CT_ITS ---
WS: [id number] CT chest w con* [id number] HISTORY: MULTIPLE LUNG NODULES TECHNIQUE: Axial imaging performed through the thorax. Coronal and sagittal reformats are submitted. All CT scans at [facility] use at least one of these dose optimization techniques: automated exposure control; mA and/or kV adjustment per patient size (includes targeted exams where dose is mat ched to clinical indication); or iterative reconstruction. CONTRAST: Omnipaque 350; 100 mL IV. DLP: 458.38 mGy.cm COMPARISON: Chest radiograph 11/07/2022. Lungs and central airway: No bilateral upper lobe pulmonary nodules to correspond to the radiographic findings. Less than 3 mm nodule in the RIGHT middle lobe. Linear atelectasis in the anterior RIGHT m iddle lobe. No suspicious masses. No pneumonia. Pleura: Normal. No pleural effusion. Heart and pericardium: Normal size heart with no pericardial effusion. Mediastinum and nathalie: Mildly prominent soft tissue in the anterior mediastinum appears to be thymic t issue. Vessels: Normal size aortic and pulmonary artery. No coronary artery calcifications. LEFT vertebral a rtery arises directly from the aorta. Chest wall and lower neck: No soft tissue masses. Upper abdomen: Prior cholecystectomy. Mild hepatic steatosis. Liver appears mildly enlarged but is in completely included on this examination. Osseous structures: No destructive process. IMPRESSION: 1. No pulmonary mass or nodule. No corresponding findings on the CT to correlate with the radiographi c findings. Radiographic findings is suspected related to degenerative changes involving the first ri b. 2. 3 mm micronodule RIGHT middle lobe. No additional follow-up necessary. 3. Prior cholecystectomy and hepatic steatosis with enlargement.
[2022-12-09] MEDS: iohexol 350 mg/mL 500 mL Btl (per mL) IV (14:52)
== END 2022-12-09 14:12 | disposition home or self-care (01) ==
PROVIDERS: PCP Family Medicine; Visit Provider Family Medicine
DX: R91.8 Other nonspecific abnormal finding of lung field (principal)
CPT/HCPCS: 71260; Q9967

== ENCOUNTER → 2023-03-30 09:19 | Outpatient (BNVA) | payer BC, MEDICAID, SELFPAY | PROVIDERS: PCP Family Medicine; Visit Provider Nurse Practitioner Family | DX: J02.9 Acute pharyngitis, unspecified (principal); H66.002 Acute suppurative otitis media without spontaneous rupture of ear drum, left ear | CPT/HCPCS: 87880 ==

== ENCOUNTER → 2023-06-02 13:52 | Outpatient (BNVA) | payer BC, MEDICAID, SELFPAY | PROVIDERS: PCP Nurse Practitioner Family; Visit Provider Nurse Practitioner Family | DX: R53.83 Other fatigue (principal) | CPT/HCPCS: 80053; 80061; 83036; 84443; 85025 ==

== ENCOUNTER → 2024-08-01 13:00 | Outpatient (BNVA) | payer BC, MEDICAID, SELFPAY | PROVIDERS: PCP Nurse Practitioner Family; Visit Provider Family Medicine | DX: I10 Essential (primary) hypertension (principal); F41.9 Anxiety disorder, unspecified; E55.9 Vitamin D deficiency, unspecified; L53.8 Other specified erythematous conditions; R79.89 Other specified abnormal findings of blood chemistry | CPT/HCPCS: 80053; 80061; 82306; 82607; 84439; 84443; 85025; 85651; 86140 ==

== ENCOUNTER 2024-09-04 20:29 | Emergency (ER) | payer BC, MEDICAID, SELFPAY ==
[2024-09-04 20:38] VITALS: BP 157/106; PULSE 99; RESP 18; TEMP 36.9; O2SAT 100; BMI 40.8
--- NOTE | 2024-09-04 21:17 | W.ED.DENTAL ---
HPI - Dental/Oral General: Chief complaint: Dental/Oral Stated complaint: mouth pain, swelling Time Seen by Provider: 09/04/24 20:49 Source: patient Mode of arrival: ambulatory Limitations: no limitations History of Present Illness: Patient is a 34-year-old female that presents to the emergency department with continued dental pain, redness of the gum after an extraction on . She reports some continued mild bleeding. She reports some mild facial swelling. She states she tried using some viscous lidocaine but almost swallowed it and numbed up the back of her throat. She denies any fever or chills. She denies any nausea or vomiting. She presents to the emergency department for further evaluation and treatment. She states she does have an allergy to codeine but states she has taken hydrocodone in the past without difficulty. Associated symptoms: Denies ear or mastoid pain, fever(s), odynophagia or tongue swelling Related Data Home Medications ?Medication ?Instructions ?Recorded ?Confirmed [id number] 250 1 tab PO Q6H PRN 08/01/24 08/01/24 mg-250 mg-65 mg tablet (Excedrin Migraine) Previous Rx's ?Medication ?Instructions ?Recorded multivitamin no.51-ferrous 1 cap PO DAILY #100 caps 12/25/21 fumarate 106.5 mg-folic acid 1 mg capsule (-U) ibuprofen 800 mg tablet 800 mg PO TID #45 tabs 03/30/23 loratadine 10 mg tablet (Allergy 10 mg PO DAILY #60 tabs 01/20/24 Relief (loratadine)) fluticasone propionate 50 See Rx Instructions .Route 03/07/24 mcg/actuation nasal .COMPLEX #16 grams spray,suspension alprazolam 0.5 mg tablet 0.5 mg PO BID PRN anxiety #60 tabs 08/01/24 lisinopril 20 1 tab PO DAILY #90 tabs 08/01/24 mg-hydrochlorothiazide 25 mg tablet escitalopram oxalate 10 mg tablet 10 mg PO DAILY #90 tabs 08/23/24 (Lexapro) omeprazole 20 mg capsule,delayed 20 mg PO DAILY #90 caps 08/23/24 release amoxicillin 875 mg-potassium 1 tab PO BID #19 tabs 09/04/24 clavulanate 125 mg tablet chlorhexidine gluconate 0.12 % 15 ml buccal BID #120 mL 09/04/24 mouthwash (Peridex) hydrocodone 5 mg-acetaminophen 325 1 tab PO Q4H PRN pain #10 tabs 09/04/24 mg tablet Allergies Allergy/AdvReac Type Severity Reaction Status Date / Time codeine Allergy ADR-Chest Verified 08/01/24 13:31 Pain gabapentin Allergy ADR-Seizure Verified 08/01/24 13:31 Review of Systems General: Reports: 10 or more systems reviewed and unremarkable except in HPI and below Const: Denies: fever(s) or chills Eyes: Denies: change in vision ENMT: Reports: dental pain; Denies: odynophagia or ear or mastoid pain Card: Denies: chest pain or palpitations Resp: Denies: dyspnea, productive cough, non-productive cough or wheezing GI: Denies: abdominal pain, nausea or vomiting : Denies: flank pain, difficulty voiding or dysuria Musc: Denies: neck pain, back pain or extremity pain Skin/Breast: Denies: rash or erythema Neuro: Denies: headache(s), numbness in extremities or weakness in extremities Psych: Denies: anxiety or depression Endo: Denies: polyuria or polydipsia Harish/Lymph: Denies: easy bruising or easy bleeding All/Imm: Denies: urticaria, throat swelling or tongue swelling PFSH ED PFSH: Medical History No pertinent past medical history Social History Smoking and tobacco/nicotine status: current every day tobacco/nicotine user cigarettes Packs smoked per day: 1 Years cigarettes smoked: 16 Alcohol intake: never Substance/Drug Use: never Adopted: No Lives independently: Yes Household members: spouse and children Marital status: Number of children: 3 service: No Current occupational status: unemployed Pets and animals: Yes Sexually active: Yes Current gender identity: Female Syeda/Catholic: Islam Special syeda needs: No Agree to transfusion: Yes Physical Exam Const: COMMON NORMALS: alert GENERAL APPEARANCE: cooperative ORIENTATION/CONSCIOUSNESS: Yes awake HENMT: COMMON NORMALS: normocephalic and atraumatic HEAD & SCALP: normocephalic and atraumatic FACE & SINUS: other (Mild swelling of the right side of the face) TEETH & GINGIVA IMAGES:  1. This tooth been extracted. There is some mild erythema but no sign of dry socket or exposed bone. There is no purulent drainage. Eye: COMMON NORMALS: conjunctivae normal CONJUNCTIVA: Yes conjunctivae normal Neck/C-Spine: COMMON NORMALS: full ROM, no lymphadenopathy and supple Lymph: LYMPHATIC: no lymphadenopathy noted Resp: COMMON NORMALS: normal respiratory effort and clear to auscultation bilaterally AUSCULTATION: clear to auscultation bilaterally, no crackles, no rales, no rhonchi and no wheezes Back/Pelvis: COMMON NORMALS: thoraco-lumbar ROM normal Extremity: COMMON NORMALS: normal to inspection and full ROM Neuro: SENSORIUM/ORIENTATION: Yes alert SPEECH: speech normal Psych: COMMON NORMALS: mental status grossly normal, cooperative and speech normal ATTITUDE: Yes calm SPEECH: Yes normal speech Course Vital Signs: Vital signs: Vital Signs Temperature 98.4 F 09/04/24 22:00 Pulse Rate 95 09/04/24 22:00 Respiratory Rate 17 09/04/24 22:00 Blood Pressure 148/98 09/04/24 22:00 Pulse Oximetry 98 09/04/24 22:00 Oxygen Delivery Me thod Room Air 09/04/24 20:38 MDM - Dental/Oral Medical Decision Making Patient was advised of the exam findings. She does have some erythema around the site of the dental extraction but no significant swelling. I will place the patient on antibiotics due to to the recent extraction and the signs of infection. Patient was also advised to swish and spit [id number] hydrogen peroxide mixed [id number] with warm water or she can use the Peridex as directed. She can do that twice a day as needed. The patient was advised to use the oral antibiotic as directed and use the pain medications as directed. I advised that she follow-up with her dentist for further evaluation and treatment. No work tomorrow. The patient expressed understanding. Differential Diagnosis Likely gingival abscess and dental abscess No radiology studies performed this visit Critical Care Time Critical Care Time: Critical Care Time: No Discharge Plan Discharge Patient Disposition: Home Clinical Impression: Gingivitis, Dental infection Condition: Stable Prescriptions: New amoxicillin-pot clavulanate 875-125 mg tablet 1 tab PO BID Qty: 19 0RF hydrocodone-acetaminophen 5-325 mg tablet 1 tab PO Q4H PRN (Reason: pain) Qty: 10 0RF chlorhexidine gluconate [Peridex] 0.12 % mouthwash 15 ml buccal BID Qty: 120 0RF No Action Excedrin Migraine 250-250-65 mg tablet 1 tab PO Q6H PRN lisinopril-hydrochlorothiazide 20-25 mg tablet 1 tab PO DAILY Qty: 90 3RF alprazolam 0.5 mg tablet 0.5 mg PO BID PRN (Reason: anxiety) Qty: 60 2RF ibuprofen 800 mg tablet 800 mg PO TID Qty: 45 0RF loratadine [Allergy Relief (loratadine)] 10 mg tablet 10 mg PO DAILY Qty: 60 2RF fluticasone propionate 50 mcg/actuation spray,suspension See Rx Instructions .ROUTE .COMPLEX Qty: 16 0RF Dose Instruction: USE 1 SPRAY IN EACH NOSTRIL TWICE DAILY Rx Instructions: USE 1 SPRAY IN EACH NOSTRIL TWICE DAILY omeprazole 20 mg capsule,delayed release(DR/EC) 20 mg PO DAILY Qty: 90 1RF escitalopram oxalate [Lexapro] 10 mg tablet 10 mg PO DAILY Qty: 90 1RF -U 106.5-1 mg Capsule 1 cap PO DAILY Qty: 100 0RF Discharge Orders: Discharge ED (Routine); Ordered 09/04/24 Ordered By: Mateo Whyte Referrals: Gene Johnson DO [Primary Care Provider, [facility]] Discharge Diet: Soft Mechanical Discharge Activity: Resume usual activity Patient Instructions: Dental Abscess (ED), Gingivitis (ED), Opioid Safety, Pain Management Activity Restrictions/Additional Instructions: Use the medications as directed. Your prescriptions were sent electronically to the [facility] pharmacy in [place]. You may use your current prescription for viscous lidocaine as directed. Warm salt water rinses 3 times a day. Follow-up with a dentist as soon as possible. Warm compresses 15 minutes at a time, 5 times throughout the day as needed for pain. If the warm compress makes the swelling worse you may alternate with ice. Return to the emergency department with any worsening symptoms. Print Language: Estonian Coding Level of Care Code ED Remote Sensing Scientist for Maile Tom
[2024-09-04] MEDS: amoxicillin-clav 875-125 mg Tablet 1 TAB PO (21:45)
[2024-09-04] MEDS: HYDROcodone-acetaminophen 5-325 mg Tablet 1 TAB PO (21:45)
[2024-09-04] MEDS: lidocaine 2% viscous 15 mL UDC MUCOUS MEM (21:45)
[2024-09-04 22:00] VITALS: BP 148/98; PULSE 95; RESP 17; TEMP 36.9; O2SAT 98
== END 2024-09-04 22:00 | disposition home or self-care (01) ==
PROVIDERS: Emergency Provider Physician Assistant; PCP Family Medicine
DX: K05.10 Chronic gingivitis, plaque induced (principal); K04.7 Periapical abscess without sinus; F17.210 Nicotine dependence, cigarettes, uncomplicated
CPT/HCPCS: 12345; 99283; J9999

== ENCOUNTER → 2024-11-21 15:30 | Outpatient (BNVA) | payer BC, MEDICAID, SELFPAY | PROVIDERS: PCP Family Medicine; Visit Provider Family Medicine | DX: L53.8 Other specified erythematous conditions (principal); M79.641 Pain in right hand; M79.642 Pain in left hand; R79.82 Elevated C-reactive protein (CRP); R70.0 Elevated erythrocyte sedimentation rate | CPT/HCPCS: 83036; 84550; 86003; 86008; 86036; 86038; 86200; 86431 ==